=== PATIENT | female | born 2000 | race Caucasian/White ===

== ENCOUNTER 2022-05-30 20:57 | Emergency (ER) | payer OTHER ==
[2022-05-30 21:06] VITALS: BP 124/76; PULSE 106; RESP 16; TEMP 98.7; BMI 25.4
[2022-05-30] MEDS ORDERED: DIPHTH,PERTUSS(ACELL),TET 0.5 ML DISP.SYRIN IM ONE ×2 (21:42→21:44)
[2022-05-30] MEDS ORDERED: IBUPROFEN 600 MG TABLET (FP) PO ONE ×2 (21:42→21:44)
== END 2022-05-30 21:51 | disposition home or self-care (01) ==
LOC: FER 20:57
PROC: 3E0234Z Introduction of Serum, Toxoid and Vaccine into Muscle, Percutaneous Approach (ICD-10-PCS; principal; 2022-05-30)
DX: T25.011A Burn of unspecified degree of right ankle, initial encounter (principal); X12.XXXA Contact with other hot fluids, initial encounter
CPT/HCPCS: 90471; 90715; 99284-25

== ENCOUNTER 2022-11-07 20:03 | Emergency (ER) | payer OTHER ==
[2022-11-07 20:11] VITALS: BP 121/80; PULSE 99; RESP 16; TEMP 98.3; BMI 25.4
[2022-11-07 20:43] LABS: HEMOGLOBIN 13.5 G/dL (10.7-15.3); MCH 31.7 pg (25.7-33.7); MCHC 33.8 g/dl (32.0-36.0); MEAN CELL VOLUME 93.9 fl (80-96); MEAN PLT VOLUME 9.4 fl (7.5-11.1); PLATELET COUNT 204.9 10^3/uL (134-434); RBC 4.26 10^6/uL (3.60-5.2); RDW 13.4 % (11.6-15.6); WHITE BLOOD COUNT 7.4 10^3/uL (4.0-10.8)
[2022-11-07 20:58] LABS: PLATELET ESTIMATE ADEQUATE
[2022-11-07 21:00] LABS: HCG,QUALITATIVE URINE Negative
[2022-11-07 21:01] LABS: ALBUMIN 4.2 g/dl (3.4-5.0); BILIRUBIN,TOTAL 0.4 mg/dl (0.2-1); CALCIUM 9.6 mg/dl (8.5-10); CREATININE 0.9 mg/dl (0.55-1.3); POTASSIUM 4.3 mmol/L (3.5-5.1); TOT PROT 7.8 g/dl (6.4-8.2)
== END 2022-11-07 23:33 | disposition home or self-care (01) ==
LOC: FER 20:03
DX: R06.02 Shortness of breath (principal); R07.9 Chest pain, unspecified; R10.2 Pelvic and perineal pain; R30.9 Painful micturition, unspecified; F43.20 Adjustment disorder, unspecified
CPT/HCPCS: 36415; 71275-TC; 80053; 81003; 81015; 84484; 84703; 85025; 85379; 93005; 99285-25; Q9967

== ENCOUNTER 2022-12-23 22:48 | Emergency (ER) | payer OTHER ==
[2022-12-24 02:01] VITALS: BP 115/75; PULSE 75; RESP 17; TEMP 98.3; BMI 25.7
[2022-12-24 02:13] LABS: BASO % 0.6 % (0-2.0); EOS % 1.3 % (0-4.5); HEMATOCRIT 38.2 % (32.4-45.2); HEMOGLOBIN 12.6 GM/dL (10.7-15.3); LYMPH % 43.4 % (8-40); MCH 30.2 pg (25.7-33.7); MEAN CELL VOLUME 91.5 fl (80-96); MEAN PLT VOLUME 9.6 fl (7.5-11.1); MONO % 5.5 % (3.8-10.2); NEUT % 49.2 % (42.8-82.8); PLATELET COUNT 219 10^3/uL (134-434); RBC 4.17 M/mm3 (3.60-5.2); RDW 13.2 % (11.6-15.6); WHITE BLOOD COUNT 6.9 K/mm3 (4.0-10.0)
[2022-12-24 02:18] LABS: HCG,QUALITATIVE URINE Negative
[2022-12-24 02:19] LABS: EPI CELLS 21 /uL (0-25.1); HYALINE CASTS 0 /uL (0-3.1); URINE APPEARANCE CLEAR; URINE BACTERIA 420 /uL (0-1359); URINE BILIRUBIN NEGATIVE (NEGATIVE); URINE COLOR YELLOW; URINE GLUCOSE (UA) NEGATIVE (NEGATIVE); URINE KETONE NEGATIVE (NEGATIVE); URINE LEUK ESTERASE TRACE (NEGATIVE); URINE NITRITE NEGATIVE (NEGATIVE); URINE PROTEIN NEGATIVE (NEGATIVE); URINE RBC 4 /uL (0-23.9); URINE UROBILINOGEN 0.2 mg/dL (0.2-1.0); URINE WBC 32 /uL (0-25.8)
[2022-12-24 02:32] LABS: POTASSIUM 3.9 mmol/L (3.5-5.1)
[2022-12-24 02:35] LABS: ALBUMIN 4.1 g/dl (3.4-5.0); BLOOD UREA NITROGEN 10.5 mg/dL (7-18); CALCIUM 9.3 mg/dL (8.5-10.1)
[2022-12-24 02:38] LABS: CREATININE 0.7 mg/dL (0.55-1.3)
[2022-12-24 02:51] LABS: BILIRUBIN,TOTAL 0.2 mg/dL (0.2-1)
== END 2022-12-24 03:27 | disposition home or self-care (01) ==
LOC: FER 22:48
DX: R10.31 Right lower quadrant pain (principal); R35.0 Frequency of micturition; R11.0 Nausea
CPT/HCPCS: 36415; 74177-TC; 80053; 81003; 84703; 85025; 87086; 99285-25; Q9967

== ENCOUNTER 2023-01-15 20:02 | Emergency (ER) | payer OTHER ==
[2023-01-15 20:21] VITALS: BP 116/80; RESP 18; TEMP 98.5
[2023-01-15 20:22] VITALS: BMI 25.8
[2023-01-15] MEDS ORDERED: MECLIZINE HCL 25 MG TABLET (FP) PO ONE (20:27)
[2023-01-15] MEDS ORDERED: MECLIZINE HCL 25 MG TABLET (FP) ONE (20:44)
[2023-01-15 20:49] LABS: HEMOGLOBIN 13.2 G/dL (10.7-15.3); MCH 31.3 pg (25.7-33.7); MEAN CELL VOLUME 94.7 fl (80-96); MEAN PLT VOLUME 7.6 fl (7.5-11.1); RBC 4.22 10^6/uL (3.60-5.2); RDW 13.5 % (11.6-15.6); WHITE BLOOD COUNT 6.6 10^3/uL (4.0-10.8)
[2023-01-15 21:05] LABS: ALBUMIN 4.4 g/dl (3.4-5.0); BILIRUBIN,TOTAL 0.3 mg/dl (0.2-1); BLOOD UREA NITROGEN 10.5 mg/dl (7-18); CALCIUM 9.3 mg/dl (8.5-10.1); CREATININE 0.8 mg/dl (0.6-1.3); POTASSIUM 4.4 mmol/L (3.5-5.1); SGOT/AST 22.6 U/L (15-37); SGPT/ALT 11.9 U/L (7-52); TOT PROT 7.5 g/dl (6.4-8.2)
[2023-01-15 21:32] VITALS: PULSE 94
== END 2023-01-15 22:41 | disposition home or self-care (01) ==
LOC: FER 20:02
DX: R42 Dizziness and giddiness (principal)
CPT/HCPCS: 36415; 70450-TC; 72125-TC; 80053; 81025; 85027; 99284-25